=== PATIENT | female | born 1990 | race Caucasian/White ===

== ENCOUNTER 2021-07-24 15:42 | Emergency (ER) | payer OTHER ==
[~2021-07-24] VITALS: Ht 167.6 cm; Wt 95.0 kg
--- NOTE | 2021-07-24 16:00 | PHYS DOC ---
Adult General Chief Complaint Chief Complaint: LOWER EXTREMITY SWELLING HPI HPI Patient is a 31-year-old female patient with no significant medical history presenting to the ED today complaining of redness, swelling, to the LLE with 6 out of 10 pain to the groin, symptoms have been going on for the last 3 days. Patient denies any trauma. Denies any use of control. Denies any recent hospitalization, denies any recent surgeries, denies any family hx of DVT. She states she was seen at [place] and was sent to the ED for DVT rule out. (NUPUR SINGH CLIENT STRATEGIST) Review of Systems Review of Systems Constitutional: Denies fever or chills [] Eyes: Denies change in visual acuity, redness, or eye pain [] HENT: Denies nasal congestion or sore throat [] Respiratory: Denies cough or shortness of breath [] Cardiovascular: No additional information not addressed in HPI [] GI: Denies abdominal pain, nausea, vomiting, bloody stools or diarrhea [] : Denies dysuria or hematuria [] Musculoskeletal: Denies back pain or joint pain [] Integument: Reports left lower extremity redness, swelling Neurologic: Denies headache, focal weakness or sensory changes [] All other systems were reviewed and found to be within normal limits, except as documented in this note. (NUPUR SINGH CLIENT STRATEGIST) Physical Exam Physical Exam Constitutional: Well developed, well nourished, no acute distress, non-toxic appearance. [] HENT: Normocephalic, atraumatic, bilateral external ears normal, oropharynx moist, no oral exudates, nose normal. [] Eyes: PERRLA, EOMI, conjunctiva normal, no discharge. [] Neck: Normal range of motion, no tenderness, supple, no stridor. [] Cardiovascular:Heart rate regular rhythm, no murmur [] Lungs & Thorax: Bilateral breath sounds clear to auscultation [] Abdomen: Bowel sounds normal, soft, no tenderness, no masses, no pulsatile masses. [] Skin: Left lower extremity is bigger than the right lower extremities. There is redness throughout the left lower extremity. + Homans' sign to the LLE. Full range of motion bilateral lower extremities. +2 left pedal pulses, cap refill <2 seconds to the left toes. sensation intact to the LLE Back: No tenderness, no CVA tenderness. [] Extremities: No tenderness, no cyanosis, no clubbing, ROM intact, see skin Neurologic: Alert and oriented X 3, normal motor function, normal sensory function, no focal deficits noted. [] Psychologic: Affect normal, judgement normal, mood normal. [] (NUPUR SINGH APRN) EKG EKG [address] Velázquez sinus rhythm HR 91 no STEMI[] (FRANCISCONUPUR Raygoza APRN) Radiology/Procedures Radiology/Procedures []PROCEDURE: VENOUS LOWER EXTREMITY LEFT Examination: Left Lower Extremity Venous Doppler Ultrasound History: Left lower extremity swelling Comparison: None Procedure: Jarquin scale, color flow 2D and spectal waveform analysis images are obtained with and without compression in the area of the common femoral vein, superficial femoral vein - femoral vein junction, main femoral vein (superficial femoral vein) and popliteal vein. Veins of the proximal calf are also imaged. Findings: There is echogenicity identified in the left common femoral vein, superficial femoral vein, popliteal vein, peroneal vein likely diffuse deep venous thrombosis. IMPRESSION: Deep venous thrombosis left lower extremity throughout. FOR INTERNAL CODING PURPOSES Critical result: Findings discussed with Nupur Singh at 07/24/2021 5:03 PM by lead nuclear medicine technologist RESULT CODE: (C) Electronically signed by: Valentín Lozada MD (07/24/2021 5:04 PM) [id number] DICTATED AND SIGNED BY: VALENTÍN LOZADA MD DATE: 07/24/21 170 CC: NUPUR SINGH APRN; PCP,NO ~MTH0 0 PROCEDURE: CT ANGIO CHEST W ABD PEL W/ Exam: CT chest, abdomen and pelvis with contrast INDICATION: Positive DVT, shortness of breath TECHNIQUE: Sequential axial images through the chest, abdomen and pelvis obtained following the administration of 100 mL of Isovue-370 IV contrast. Sagittal and coronal reformatted images were reconstructed from the axial data and reviewed. 3-D reformatted images were reconstructed from the axial data and reviewed. Exposure: One or more of the following in the visualized dose reduction techniques were utilized for this examination: 1. Automated exposure control 2. Adjustment of the MA and/or KV according to patient size 3. Use of iterative of reconstructive technique Comparisons: Ultrasound same day FINDINGS: Visualized portions of the thyroid are unremarkable. No enlarged mediastinal lymph nodes are identified. Heart size is normal. No pericardial effusion. Thoracic aorta has a normal course and caliber. Pulmonary artery is not enlarged. There is a saddle pu lmonary embolus noted extending predominantly into the left main pulmonary artery. There is mild enlargement of the right lateral ventricle and right atrium. Airways are patent. No consolidation or pneumothorax. No suspicious lung nodules are identified. No pleural effusion or thickening. Diffuse hepatic steatosis. Tiny wedge-shaped areas of peripheral hypoenhancement noted in the spleen. Pancreas, gallbladder and adrenals are unremarkable. No perinephric inflammation or hydronephrosis. No renal or ureteral calculi are identified. Bladder is decompressed not well evaluated. Uterus is not enlarged. No abnormal adnexal mass. Large and small bowel are unremarkable. Appendix is nonidentified. No free intra-abdominal air or fluid. No obstruction. Abdominal aorta has normal course and caliber. Thrombus noted within the left common femoral vein extending into the external iliac vein and common iliac vein to the level of the IVC confluence. No enlarged intra-abdominal lymph nodes are identified. No suspicious osseous lesions or acute fractures. IMPRESSION: 1. Large saddle pulmonary embolus. Correlate with troponin for evidence for right heart strain. 2. Extensive thrombus in the visualized left upper extremity extending into the left external iliac vein, and common iliac vein the level of the IVC confluence. 3. Tiny areas of wedge-shaped hypoenhancement at the splenium, may relate to splenic infarcts. 4. Diffuse hepatic steatosis. FOR INTERNAL CODING PURPOSES Critical result: Findings discussed with Nupur Singh at 07/24/2021 5:49 PM. RESULT CODE: (C) Electronically signed by: Vishnu Fong MD (07/24/2021 5:59 PM) [facility] DICTATED AND SIGNED BY: VISHNU FONG MD DATE: 07/24/21 1748 CC: NUPUR SINGH APRN; PCP,NO ~MTH0 0 (NUPUR SINGH APRN) Heart Score C/O Chest Pain: N/A Risk Factors: Risk Factors: DM, Current or recent (<one month) smoker, HTN, HLP, family history of CAD, obesity. Risk Scores: Risk Factors: DM, Current or recent (<one month) smoker, HTN, HLP, family history of CAD, obesity. (NUPUR SINGH APRN) Course & Med Decision Making Course & Med Decision Making Pertinent Labs and Imaging studies reviewed. (See chart for details) This is a 31-year-old female patient presented to the ED today with redness and swelling to the left lower extremity and concerned she could have a DVT. Symptoms began 3 days ago. No risk factors for DVT. EKG, CBC, CMP, troponin-no acute findings Venous doppler of the LLE noted for deep venous thrombosis throughout the left lower extremity CT angio chest abd and pelvis noted for large saddle pulmonary embolus. Correlate with troponin for evidence for right heart strain. Extensive thrombus in the visualized left upper extremity extending into the left external iliac vein, and common iliac vein the level of the IVC confluence. Tiny areas of wedge-shaped hypoenhancement at the splenium, may relate to splenic infarcts. Diffuse hepatic steatosis. Spoke to Dr. Arana who accepted patient for admission, he requested to start patient on Lovenox not heparin and admit patient at [place]. Nursing supervisor of officials requested patient to be transferred to [place], she states [facility] is not able to handle her condition if it worsens. Called Dr. Arana again, informed Dr. Arana the concerns of keeping patient at [place]. Dr. Chowdhury stated stated we can transfere patient to [facility] if they are not able to care for her at [place]. Patient continues to be stable, no chest pain, no shortness of breath, O2 sats above 98% on room air. Dr. Leavitt was notified about patient's PE and DVT. (NUPUR SINGH APRN) Dragon Disclaimer Dragon Disclaimer This electronic medical record was generated, in whole or in part, using a voice recognition dictation system. (NUPUR SINGH APRN) Attending Co-Sign The patient was seen and interviewed as well as examined at the bedside. The chart was reviewed. The case was discussed. Agree with the plan of care. (FAREED LEAVITT DO) Departure Departure: Impression: Primary Impression: DVT (deep venous thrombosis) Additional Impression: Saddle pulmonary embolus Disposition: 02 SHORT TERM HOSPITAL Condition: STABLE Problem Qualifiers Primary Impression: DVT (deep venous thrombosis) DVT location: lower extremity Affected thrombotic vein of extremity: femoral Chronicity: acute Laterality: left Qualified Codes: I82.412 - Acute embolism and thrombosis of left femoral vein Additional Impression: Saddle pulmonary embolus Chronicity: acute Acute cor pulmonale presence: without acute cor pulmonale Qualified Codes: I26.92 - Saddle embolus of pulmonary artery without acute cor pulmonale NUPUR SINGH APRN Jul 24, 2021 16:00 FAREED LEAVITT DO Jul 26, 2021 15:39
--- NOTE | 2021-07-24 17:07 | RAD ---
Examination: Left Lower Extremity Venous Doppler Ultrasound History: Left lower extremity swelling Comparison: None Procedure: Jarquin scale, color flow 2D and spectal waveform analysis images are obtained with and witho ut compression in the area of the common femoral vein, superficial femoral vein - femoral vein juncti on, main femoral vein (superficial femoral vein) and popliteal vein. Veins of the proximal calf are a lso imaged. Findings: There is echogenicity identified in the left common femoral vein, superficial femoral vein, popliteal vein, peroneal vein likely diffuse deep venous thrombosis. IMPRESSION: Deep venous thrombosis left lower extremity throughout. FOR INTERNAL CODING PURPOSES Critical result: Findings discussed with Becca Solomon at 07/24/2021 5:03 PM by senior medical technologist RESULT CODE: (C) Electronically signed by: Valentín Lozada MD (07/24/2021 5:04 PM) [id number]
[2021-07-24] MEDS ORDERED: IOHEXOL 350 MG/ML 100 ML VIAL. IV ONE (17:15)
[2021-07-24] MEDS ORDERED: CONTRAST GIVEN. MC PRN (17:15)
[2021-07-24 17:42] LABS: BASO % 1 % (0-3); EOS # 0.1 x10^3/uL (0.0-0.7); EOS % 2 % (0-3); HEMATOCRIT 36.9 % (36.0-47.0); HEMOGLOBIN 11.7 g/dL (12.0-15.5); LYMPH # 1.4 x10^3/uL (1.0-4.8); LYMPH % 19 % (24-48); MEAN CORPUSCULAR HEMOGLOBIN 23 pg (25-35); MEAN CORPUSCULAR HGB CONC 32 g/dL (31-37); MEAN CORPUSCULAR VOLUME 73 fL (79-100); MONO # 0.5 x10^3/uL (0.0-1.1); MONO % 6 % (0-9); NEUT # 5.6 x10^3uL (1.8-7.7); NEUT % 73 % (31-73); PLATELET COUNT 133 x10^3/uL (140-400); RED BLOOD COUNT 5.05 x10^6/uL (3.50-5.40); RED CELL DISTRIBUTION WIDTH 18.4 % (11.5-14.5); WHITE BLOOD COUNT 7.6 x10^3/uL (4.0-11.0)
[2021-07-24] MEDS ORDERED: MORPHINE SULFATE 2 MG/ML DISP.SYRIN. IVP PRN (17:45)
[2021-07-24] MEDS ORDERED: ENOXAPARIN ** NOTE DOSE ** SYRINGE SQ ONE (17:45)
[2021-07-24 17:50] LABS: CALCIUM 9.3 mg/dL (8.5-10.1); CREATININE 0.7 mg/dL (0.6-1.0); GFR 98.9; POTASSIUM 3.7 mmol/L (3.5-5.1)
[2021-07-24 17:56] LABS: TOTAL BILIRUBIN 0.8 mg/dL (0.2-1.0); TOTAL PROTEIN 8.2 g/dL (6.4-8.2)
--- NOTE | 2021-07-24 18:02 | RAD ---
Exam: CT chest, abdomen and pelvis with contrast INDICATION: Positive DVT, shortness of breath TECHNIQUE: Sequential axial images through the chest, abdomen and pelvis obtained following the admin istration of 100 mL of Isovue-370 IV contrast. Sagittal and coronal reformatted images were reconstru cted from the axial data and reviewed. 3-D reformatted images were reconstructed from the axial data and reviewed. Exposure: One or more of the following in the visualized dose reduction techniques were utilized for this examination: 1. Automated exposure control 2. Adjustment of the MA and/or KV according to patient size 3. Use of iterative of reconstructive technique Comparisons: Ultrasound same day FINDINGS: Visualized portions of the thyroid are unremarkable. No enlarged mediastinal lymph nodes are identifi ed. Heart size is normal. No pericardial effusion. Thoracic aorta has a normal course and caliber. Pulmon abdirashid artery is not enlarged. There is a saddle pulmonary embolus noted extending predominantly into th e left main pulmonary artery. There is mild enlargement of the right lateral ventricle and right atri um. Airways are patent. No consolidation or pneumothorax. No suspicious lung nodules are identified. No pleural effusion or thickening. Diffuse hepatic steatosis. Tiny wedge-shaped areas of peripheral hypoenhancement noted in the spleen. Pancreas, gallbladder and adrenals are unremarkable. No perinephric inflammation or hydronephrosis. No renal or ureteral calculi are identified. Bladder is decompressed not well evaluated. Uterus is not enlarged. No abnormal adnexal mass. Large and small bowel are unremarkable. Appendix is nonidentified. No free intra-abdominal air or flu id. No obstruction. Abdominal aorta has normal course and caliber. Thrombus noted within the left common femoral vein ext ending into the external iliac vein and common iliac vein to the level of the IVC confluence. No enlarged intra-abdominal lymph nodes are identified. No suspicious osseous lesions or acute fractures. IMPRESSION: 1. Large saddle pulmonary embolus. Correlate with troponin for evidence for right heart strain. 2. Extensive thrombus in the visualized left upper extremity extending into the left external iliac vein, and common iliac vein the level of the IVC confluence. 3. Tiny areas of wedge-shaped hypoenhancement at the splenium, may relate to splenic infarcts. 4. Diffuse hepatic steatosis. FOR INTERNAL CODING PURPOSES Critical result: Findings discussed with Becca Solomon at 07/24/2021 5:49 PM. RESULT CODE: (C) Electronically signed by: Vishnu Welsh MD (07/24/2021 5:59 PM) [facility]
[2021-07-24] MEDS ORDERED: ONDANSETRON PF 4 MG/2 ML VIAL. IVP PRN (19:15)
[2021-07-24] MEDS ORDERED: MORPHINE SULFATE 4 MG/ML DISP.SYRIN. IV PRN (22:00)
--- NOTE | 2021-07-24 23:28 | EKG ---
[address] [address] Test Date: 2021-07-24 Test Time: 18:01:28 Pat Name: DESIRAE BURTON Department: Room: Gender: F Broadcast Technician: ADELIA : 1990 Requested By: NUPUR SINGH Order Number: [id number] Reading MD: Guille Tom MD Measurements Intervals [place] Rate: 91 P: 66 MA: 140 QRS: 75 QRSD: 86 T: 47 QT: 358 QTc: 442 Interpretive Statements SINUS RHYTHM Electronically Signed On 07-25-2021 9:10:42 ADMISSION NURSE by Guille Tom MD
[2021-07-25 01:26] VITALS: BP 123/65
[2021-07-25] MEDS ORDERED: ENOXAPARIN ** NOTE DOSE ** SYRINGE SQ SCH (06:00)
== END 2021-07-25 01:45 | disposition short-term general hospital (02) ==
LOC: ER 15:42 → UNDOADMIN 19:18 → 1 SOUTH 19:18 → ER 07-25 01:45
DX: I82.412 Acute embolism and thrombosis of left femoral vein (principal); I26.92 Saddle embolus of pulmonary artery without acute cor pulmonale
CPT/HCPCS: 36415; 71275; 74177; 80053; 82553; 84484; 85025; 85610; 85730; 93005; 93971; 96372; 96374; 99285; J1650; J2270; Q9967; 81241